=== PATIENT | female | born 1985 | race Caucasian/White ===

== ENCOUNTER 2016-10-17 09:07 | Emergency (ER) | payer OTHER ==
[~2016-10-17] VITALS: Ht 162.6 cm; Wt 72.8 kg
[~2016-10-17 09:07] MED LIST: BUSPAR10 MG PO; BUTALB-APAP-CA1 EACH PO; CELEXA20 MG PO; ENDOCET 5-3251 EACH PO; FERROUS SULFAT325 MG PO; FLUOXETINE HCL20 MG PO; GUIATUSS AC SY120 M1 PO; IBUPROFEN800 MG PO; KEFLEX500 MG PO; KETOCONAZOLE60 GM TP; LIDODERM 5% P1 PATCH TD; MICRONOR0.35 MG PO; MOTRIN600 MG PO; MOTRIN800 MG PO; ORTHO TRI-CYCL1 EACH; PRENATAL TABLE1 EAC3 PO; PRENATAL VITAM1 EAC3 PO; PROZAC40 MG PO; SKELAXIN400 M1 PO; ULTRAM50 MG PO; ZITHROMAX Z-PA250 MG PO; ZOVIRAX400 MG PO
[2016-10-17 09:37] LABS: MCH 29.9 PG (29.0-34.0); MCHC 33.3 G/DL (30.0-36.0); MCV 89.9 FL (83-99); MEAN PLAT.VOLUME 10.6 uM^3 (9.5-12.4); PLATELET COUNT 202 K/uL (156-360); RBC DIS.WIDTH-CV 13.1 % (11.8-14.6); RBC DIS.WIDTH-SD 43.1 % (39-53); RED BLOOD COUNT 4.45 M/uL (3.80-5.20)
[2016-10-17 09:46] LABS: CHLORIDE 106 mEq/L (99-109); POTASSIUM 3.8 mEq/L (3.7-5.4); SODIUM 136 mEq/L (136-147)
[2016-10-17 09:47] LABS: GLUCOSE 90 mg/dL (70-99)
[2016-10-17 09:49] LABS: ANION GAP 5 MEQ/L (2-14)
[2016-10-17 09:51] LABS: GFR ESTIMATE (CALCULATED) > 59 mL/min/
[2016-10-17 09:52] LABS: UREA NITROGEN (BUN) 9 mg/dL (9-23)
[2016-10-17 10:22] LABS: QUANTITATIVE HCG 157724.2 MIU/ML
[2016-10-17 10:53] LABS: ADD MIUA? NO; BILIRUBIN NEGATIVE; BLOOD NEGATIVE; COLOR YELLOW ((YELLOW)); GLUCOSE (STRIP) NEGATIVE; KETONES NEGATIVE; LEUKOCYTES NEGATIVE; NITRITE NEGATIVE; PROTEIN (STRIP) NEGATIVE; SPECIFIC GRAVITY 1.015 (1.000-1.030); UCUL ADDED? NO; UROBILINOGEN 0.2 MG/DL (0.2-1.0)
[2016-10-17 11:43] VITALS: BP 108/65
== END 2016-10-17 11:43 | disposition home or self-care (01) ==
LOC: EME 09:07 → EXP 09:07
PROVIDERS: Nurse Practitioner Family
DX: O26.891 Other specified pregnancy related conditions, first trimester (principal); R10.813 Right lower quadrant abdominal tenderness; R10.2 Pelvic and perineal pain; Z3A.01 Less than 8 weeks gestation of pregnancy; Z87.891 Personal history of nicotine dependence
CPT/HCPCS: 76801; 80048; 81003; 84702; 85027; 99281; 99284

== ENCOUNTER 2017-01-04 10:05 | Emergency (ER) | payer OTHER ==
[~2017-01-04] VITALS: Ht 162.6 cm; Wt 76.9 kg
[2017-01-04] MEDS ORDERED: PEN-VEE K,VEET500 MG PO (10:28)
[2017-01-04 11:00] VITALS: BP 111/81
== END 2017-01-04 11:03 | disposition home or self-care (01) ==
LOC: EME 10:05
DX: O99.612 Diseases of the digestive system complicating pregnancy, second trimester (principal); K04.7 Periapical abscess without sinus; Z3A.18 18 weeks gestation of pregnancy
CPT/HCPCS: 99281; 99283

== ENCOUNTER 2017-02-16 16:59 | Outpatient (CLI) | payer OTHER ==
[~2017-02-16] VITALS: Ht 162.6 cm; Wt 78.2 kg
[~2017-02-16 16:59] MED LIST changes: +PEN-VEE K,VEET500 MG PO
[2017-02-16 17:12] VITALS: BP 125/68
[2017-02-16] MEDS ORDERED: CELEXA20 MG PO (17:31)
[2017-02-16] MEDS ORDERED: PRENATAL TABLE1 EACH PO (17:32)
[2017-02-16 18:12] VITALS: BP 109/53
[2017-02-16 18:59] LABS: ADD MIUA? YES; BILIRUBIN NEGATIVE; BLOOD SMALL; COLOR YELLOW ((YELLOW)); GLUCOSE (STRIP) NEGATIVE; KETONES 20; LEUKOCYTES NEGATIVE; NITRITE NEGATIVE; PROTEIN (STRIP) NEGATIVE; SPECIFIC GRAVITY 1.028 (1.000-1.030); UROBILINOGEN 0.2 MG/DL (0.2-1.0)
[2017-02-16 19:21] LABS: BACTERIA RARE /HPF; EPITHELIAL CELLS RARE /HPF; MUCUS NONE SEEN /LPF; WHITE BLOOD CELLS NONE SEEN /HPF (0-5)
[2017-02-16 19:22] LABS: CASTS NONE SEEN /LPF; CRYSTALS NONE SEEN
[2017-02-16 22:57] LABS: CANDIDA DNA PROBE NEGATIVE; GARDNERELLA DNA PROBE NEGATIVE; INTERNAL CONTROL VALID? YES
== END 2017-02-16 19:38 | disposition home or self-care (01) ==
LOC: LDRP-OP → 2WEST 17:02 → LDRP-OP 03-08 14:24
PROVIDERS: Advanced Practice Midwife
DX: O26.892 Other specified pregnancy related conditions, second trimester (principal); Z3A.24 24 weeks gestation of pregnancy
CPT/HCPCS: 59025; 81003; 87086; 87480; 87510; 87660; G0378

== ENCOUNTER → 2017-03-10 | Outpatient (CLI) | payer OTHER ==
[~2017-03-10] VITALS: Ht 162.6 cm; Wt 78.0 kg
[~2017-03-10] MED LIST changes: +PRENATAL TABLE1 EACH PO
[2017-03-10 10:45] VITALS: BP 120/99
== END | disposition home or self-care (01) ==
LOC: IVINF 10:35
DX: Z31.82 Encounter for Rh incompatibility status (principal); Z3A.28 28 weeks gestation of pregnancy
CPT/HCPCS: 96372; J2790

== ENCOUNTER 2017-08-14 13:05 | Emergency (ER) | payer OTHER ==
[~2017-08-14] VITALS: Ht 162.6 cm; Wt 84.1 kg
[2017-08-14] MEDS ORDERED: CELEXA20 MG PO (14:02)
[2017-08-14 14:10] VITALS: BP 147/82
== END 2017-08-14 14:17 | disposition home or self-care (01) ==
LOC: EME 13:05
DX: F32.9 Major depressive disorder, single episode, unspecified (principal); Z76.0 Encounter for issue of repeat prescription
CPT/HCPCS: 99281; 99282